=== PATIENT | female | born 1975 | race Caucasian/White ===

== ENCOUNTER → 2024-09-16 08:33 | Outpatient (REF) | payer OTHER, SELFPAY | LOC: HWWDC 08:33 | PROVIDERS: ATTENDING PHYSICIAN Family Medicine | DX: Z12.31 Encounter for screening mammogram for malignant neoplasm of breast (principal) | CPT/HCPCS: 77063; 77067 ==

== ENCOUNTER → 2024-12-30 08:04 | Outpatient (REF) | payer OTHER, SELFPAY | LOC: WDC 08:04 | PROVIDERS: ATTENDING PHYSICIAN Family Medicine | DX: R92.2 Inconclusive mammogram (principal) | CPT/HCPCS: 76641 ==